=== PATIENT | female | born 1995 | race African-American/Black ===

== ENCOUNTER 2017-10-20 04:40 | Inpatient (IN) | payer OTHER ==
[2017-10-20] MEDS ORDERED: AMPICILLIN SODIUM 2 GM VIAL ONE (08:55)
[2017-10-20] MEDS: ELECTROLYTE-148 SOLN 1,000 ML IV SCH ×2 (09:00→17:11)
[2017-10-20] MEDS ORDERED: AMPICILLIN - 2 GM in SODIUM CHLORIDE 100 ML IVPB ONE (09:00)
[2017-10-20 09:32] LABS: BASO % 0.6 % (0-2.0); EOS % 5.7 % (0-4.5); HEMATOCRIT 26.5 % (32.4-45.2); HEMOGLOBIN 8.7 GM/dL (10.7-15.3); LYMPH % 26.5 % (8-40); MCH 24.3 pg (25.7-33.7); MCHC 32.8 g/dl (32.0-36.0); MEAN CELL VOLUME 74.2 fl (80-96); MEAN PLT VOLUME 7.1 fl (7.5-11.1); MONO % 11.8 % (3.8-10.2); NEUT % 55.4 % (42.8-82.8); PLATELET COUNT 370 K/MM3 (134-434); RBC 3.57 M/mm3 (3.60-5.2); RDW 16.5 % (11.6-15.6); WHITE BLOOD COUNT 8.3 K/mm3 (4.0-10.0)
[2017-10-20 10:04] LABS: ANION GAP 7 (8-16); BLOOD UREA NITROGEN 6 mg/dL (7-18); CHLORIDE 109 mmol/L (98-107); CO2 22 mmol/L (21-32); CREATININE 0.6 mg/dL (0.55-1.02); GLUCOSE,RANDOM 77 mg/dL (74-106); SODIUM 138 mmol/L (136-145)
[2017-10-20 10:08] LABS: INR 0.91 (0.82-1.09); PROTHROMBIN TIME (PATIENT) 10.3 SEC (9.7-13.0)
[2017-10-20 10:10] LABS: ACTIVATED PTT 26.9 SECONDS (26.9-34.4)
[2017-10-20 10:21] VITALS: BMI 36.2
[2017-10-20] MEDS ORDERED: ALBUTEROL SO4 8 GM HFA INHALER IH PRN (10:34)
[2017-10-20] MEDS ORDERED: BUTORPHANOL TARTRATE 1 MG/ML VIAL IVPUSH ONE (10:35)
[2017-10-20] MEDS ORDERED: PROMETHAZINE HCL 25 MG/1 ML VIAL IVPB ONE (10:35)
--- NOTE | 2017-10-20 10:57 | HP ---
Past Medical History - Primary Care Physician PCP:: Shelton Elena - Admission Chief Complaint: 40 weeks, high leak,early labor , inadequate care History of Present Illness: 22 yo f , 40+ weeks gestation with inadequate , limited care c/o of leaking fluid since 510 am today , clear, has irregular contraction on and off , no fever,cx 1 to 2 cm 70 vx , forbag felt, nitrazine positive , CBC, BMP 10/20/17 09:00 10/20/17 09:00 History Source: Patient Limitations to Obtaining History: No Limitations - Past Medical History ...: 1 ...Para: 0 ...Term: 0 ...: 0 ...Spon : 0 ...Induced : 0 ...Multiple Gestation: 0 ...LMP: 01/07/17 ... Weeks Gestation by Dates: 40.6 ...EDC by Dates: 10/14/17 ...EDC by Sono: 10/15/17 Heme/Onc: Yes: Anemia - Past Surgical History Hx Myomectomy: No Hx Transabdominal Cerclage: No - Smoking History Smoking history: Never smoked Have you smoked in the past 12 months: No - Alcohol/Substance Use Hx Alcohol Use: No - Social History History of Recent Travel: No Home Medications - Allergies Allergies/Adverse Reactions: Allergies Allergy/AdvReac Type Severity Reaction Status Date / Time shellfish derived Allergy Intermediate Hives Verified 10/15/17 14:24 No Known Drug Allergies Allergy Verified 10/15/17 14:24 - Home Medications Home Medications: Ambulatory Orders Albuterol Sulfate Inhaler - [Ventolin Hfa Inhaler -] 2 inh PO PRN PRN 09/09/17 Review of Systems - Review of Systems Constitutional: reports: No Symptoms Eyes: reports: No Symptoms HENT: reports: No Symptoms Neck: reports: No Symptoms Cardiovascular: reports: No Symptoms Respiratory: reports: No Symptoms Gastrointestinal: reports: No Symptoms Genitourinary: reports: No Symptoms Breasts: reports: No Symptoms Reported Musculoskeletal: reports: No Symptoms Integumentary: reports: No Symptoms Neurological: reports: No Symptoms Endocrine: reports: No Symptoms Hematology/Lymphatic: reports: No Symptoms Psychiatric: reports: No Symptoms Physical Exam - Maternity Vital Signs: Vital Signs Temperature 98.1 F 10/20/17 10:00 Pulse Rate 72 10/20/17 10:00 Respiratory Rate 18 10/20/17 10:00 Blood Pressure 124/66 10/20/17 10:00 O2 Sat by Pulse Oximetry (%) Constitutional: Yes: Well Nourished, No Distress, Calm Eyes: Yes: WNL, Conjunctiva Clear, EOM Intact HENT: Yes: WNL, Atraumatic, Normocephalic Neck: Yes: WNL, Supple, Trachea Midline Cardiovascular: Yes: WNL, Regular Rate and Rhythm Breast(s): Yes: WNL - Abdominal Exam/OB Fundal Height: 40 Number of Fetuses: Single Presentation: Vertex Contractions: Yes Regularity: Irregular Intensity: Mild/Mod Heart Rate Location: [facility] Category: I Accelerations: Uniform Decelerations: None - Vaginal Exam/OB Vaginal Bleediing: No Speculum Exam: Yes Dilatation (cm): 1 to 2 Effacement (%): 70 Amniotic Membrane Status: Bulging Nitrazine Test: Positive Presentation: Vertex/Position Station: -3 - Physical Exam Musculoskeletal: Yes: WNL Extremities: Yes: WNL Edema: LLE: Trace, RLE: Trace Deep Tendon Reflex Grade: Normal +2 ...Motor Strength: WNL Psychiatric: Yes: WNL - Labs Lab Results: CBC, BMP 10/20/17 09:00 10/20/17 09:00 Hemorrhage Risk Assessment - Risk Factors Medium Risk Factors: Yes: None High Risk Factors: Yes: None Risk Score: 1 Risk Level: Medium Risk Problem List - Problems (1) Post term over 40 weeks Code(s): O48.0 - POST-TERM (2) membrane rupture Code(s): [id number] - (3) History of inadequate care Code(s): O09.30 - SUPRVSN OF PREG W INSUFFICIENT ANTENAT CARE, UNSP TRIMESTER (4) Anemia Code(s): D64.9 - ANEMIA, UNSPECIFIED Qualifiers: Anemia type: iron deficiency Assessment/Plan admit, GBS positve , iv amp prophylaxis, expectant management . revaluation later for possible pitocin,
[2017-10-20] MEDS: AMPICILLIN - 1 GM in SODIUM CHLORIDE 100 ML IVPB SCH ×3 (13:25→21:00)
[2017-10-20] MEDS ORDERED: AMPICILLIN SODIUM 1 GM VIAL ONE ×2 (17:03→20:29)
[2017-10-20 20:07] LABS: URIC ACID 6.2 mg/dL (2.6-7.2)
[2017-10-20] MEDS ORDERED: LABETALOL HCL 200 MG TABLET (FP) ONE (20:21)
[2017-10-20] MEDS ORDERED: LABETALOL HCL 200 MG TABLET (FP) PO ONE (20:45)
[2017-10-20] MEDS ORDERED: OXYTOCIN 30 UNITS in 0.9% NS 30 UNIT/500 ML INFUS.BAG IVPB SCH (20:45)
[2017-10-20 21:42] LABS: URINE APPEARANCE CLEAR; URINE BILIRUBIN NEGATIVE (<2.0 mg/dL); URINE COLOR STRAW; URINE GLUCOSE (UA) NEGATIVE (NEGATIVE); URINE KETONE NEGATIVE (NEGATIVE); URINE LEUK ESTERASE NEGATIVE (NEGATIVE); URINE NITRITE NEGATIVE (NEGATIVE); URINE PROTEIN NEGATIVE (NEGATIVE); URINE UROBILINOGEN NEGATIVE mg/dL (0.2-1.0)
[2017-10-20 21:44] LABS: EPI CELLS RARE /HPF (FEW)
[2017-10-21] MEDS ORDERED: AMPICILLIN SODIUM 1 GM VIAL ONE ×4 (00:48→12:26)
[2017-10-21] MEDS: AMPICILLIN - 1 GM in SODIUM CHLORIDE 100 ML IVPB SCH ×4 (00:54→13:00)
[2017-10-21] MEDS: ELECTROLYTE-148 SOLN 1,000 ML IV SCH ×2 (01:45→06:00)
[2017-10-21] MEDS ORDERED: FENTANYL/BUPIVACAINE/NS/PF - PCEA - 50 ML DISP.SYRIN EP ONE ×3 (02:01→10:00)
[2017-10-21] MEDS ORDERED: NALOXONE HCL 0.4 MG/ML VIAL IVPUSH PRN (02:43)
[2017-10-21] MEDS ORDERED: FENTANYL/BUPIVACAINE/NS/PF - PCEA - 50 ML DISP.SYRIN EP SCH (02:45)
[2017-10-21] MEDS ORDERED: LABETALOL HCL 200 MG TABLET (FP) ONE ×2 (02:57→10:51)
[2017-10-21] MEDS: LABETALOL HCL 200 MG TABLET (FP) PO PRN ×2 (03:00→10:50)
--- NOTE | 2017-10-21 07:58 | PN ---
Progress Note (short form) - Note Progress Note: cx 4 cm 80, vx -3 mi, bulging, FH cat 1, contraction q 2 min, arom clear Problem List - Problems (1) Post term over 40 weeks Code(s): O48.0 - POST-TERM (2) membrane rupture Code(s): [id number] - (3) History of inadequate care Code(s): O09.30 - SUPRVSN OF PREG W INSUFFICIENT ANTENAT CARE, UNSP TRIMESTER (4) Anemia Code(s): D64.9 - ANEMIA, UNSPECIFIED Qualifiers: Anemia type: iron deficiency
[2017-10-21] MEDS ORDERED: BUPIVACAINE HCL/PF 0.25% (2.5MG/ML) 10 ML VIAL ONE ×2 (10:08→11:26)
[2017-10-21] MEDS ORDERED: ELECTROLYTE-148 SOLN 1,000 ML IV SCH ×2 (10:30→15:45)
[2017-10-21] MEDS ORDERED: OXYTOCIN 20 UNITS in 0.9% NS 20 UNIT/1,000 ML INFUS.BAG IV ONE ×2 (14:03→18:41)
[2017-10-21] MEDS ORDERED: LIDOCAINE HCL 1% PRESERVATIVE FREE - 30ML VIAL ONE (14:03)
--- NOTE | 2017-10-21 15:31 | PN ---
Progress Note (short form) - Note Progress Note: cx 9 cm , head OP , no descent with pushing, LGA baby, advised c/s rba discussed Problem List - Problems (1) Post term over 40 weeks Code(s): O48.0 - POST-TERM (2) membrane rupture Code(s): [id number] - (3) History of inadequate care Code(s): O09.30 - SUPRVSN OF PREG W INSUFFICIENT ANTENAT CARE, UNSP TRIMESTER (4) Anemia Code(s): D64.9 - ANEMIA, UNSPECIFIED Qualifiers: Anemia type: iron deficiency
[2017-10-21] MEDS ORDERED: LIDO 2%/EPI 1:200000 PRESRVFRE (20 ML SDVIAL) ONE (15:41)
[2017-10-21] MEDS ORDERED: CITRIC ACID/SODIUM CITRATE 30 ML UNIT-DOSE CUP PO ONE (15:42)
[2017-10-21] MEDS ORDERED: ceFAZolin SODIUM 1 GM VIAL ONE ×2 (16:00→21:19)
[2017-10-21] MEDS ORDERED: LABETALOL HCL 5 MG/1 ML (100MG/20 ML VIAL) ONE (16:00)
--- NOTE | 2017-10-21 16:26 | PN ---
Progress Note (short form) - Note Progress Note: This is FT female delivered by C/S to 23yrs old mother with FTP- ? large baby Mom PNL- GBS- Pos 1 dose of Amp < 4hrs PT del cried swoon after suctioned/ dried cord 3V 9/9 Infant clinically stable- looks clarge in size. 's PE nl for age Plan: RNBC Watch for resp distress Encourage Bf/ Bonding Start early feeds
[2017-10-21] MEDS ORDERED: morphine SULFATE/Preservative Free 0.5 MG/ML (1cc Syringe) ONE ×8 (16:28)
[2017-10-21 16:43] LABS: ARTERIAL BLOOD GAS PCO2 59.4 mmHg (35-45); ARTERIAL BLOOD GAS pH 7.25 (7.35-7.45)
[2017-10-21 16:44] LABS: VENOUS PC02 42.2 mmHg (38-52); VENOUS PH 7.33 (7.32-7.42); VENOUS PO2 35.8 mmHg (28-48)
[2017-10-21 16:46] LABS: ARTERIAL BLOOD GAS PO2 15.5 mmHg (80-100)
[2017-10-21 16:47] LABS: ARTERIAL BLD GAS O2 SATURATION 18.4 % (90-98.9)
[2017-10-21] MEDS ORDERED: diphenhydrAMINE HCL 25 MG CAPSULE (FP) PO PRN (16:48)
[2017-10-21] MEDS ORDERED: BENZOCAINE 28 GM HEMORRHOIDAL OINTMENT PR PRN (16:48)
[2017-10-21] MEDS ORDERED: METHYLERGONOVINE MALEATE 0.2 MG/1 ML AMP IM PRN (16:48)
[2017-10-21] MEDS ORDERED: WITCH HAZEL 50% (TUCKS) 40 PAD/JAR PAD TP PRN (16:48)
[2017-10-21] MEDS ORDERED: IBUPROFEN 600 MG TABLET (FP) PO PRN ×2 (16:48→17:09)
[2017-10-21] MEDS ORDERED: BENZOCAINE 20% 57 GM BOTTLE TP PRN (16:48)
[2017-10-21] MEDS ORDERED: IBUPROFEN 800 MG/8 ML IJ IVPB PRN (16:48)
[2017-10-21] MEDS ORDERED: oxyCODONE HCL 5 MG TABLET PO PRN (16:48)
[2017-10-21] MEDS ORDERED: DEXTROSE 5%-LACTATED RINGERS 1,000 ML IV SCH (17:00)
[2017-10-21] MEDS ORDERED: OXYTOCIN 20 UNITS in 0.9% NS 20 UNIT/1,000 ML INFUS.BAG IV SCH (17:00)
[2017-10-21] MEDS ORDERED: ONDANSETRON 4 MG/2 ML VIAL IVPUSH PRN (17:09)
[2017-10-21] MEDS ORDERED: CEFAZOLIN 1 GM in DEXTROSE 5%-WATER - 50 ML IVPB SCH (18:00)
[2017-10-21 18:11] LABS: RETICULOCYTES 2.48 % (0.5-1.5)
[2017-10-21 18:38] LABS: URIC ACID 6.9 mg/dL (2.6-7.2)
[2017-10-21 18:40] LABS: URINE APPEARANCE CLEAR; URINE BILIRUBIN NEGATIVE (<2.0 mg/dL); URINE COLOR YELLOW; URINE GLUCOSE (UA) NEGATIVE (NEGATIVE); URINE KETONE TRACE (NEGATIVE); URINE LEUK ESTERASE NEGATIVE (NEGATIVE); URINE NITRITE NEGATIVE (NEGATIVE); URINE UROBILINOGEN NEGATIVE mg/dL (0.2-1.0)
[2017-10-21] MEDS ORDERED: IBUPROFEN 800 MG/8 ML IJ IVPB ONE (18:41)
[2017-10-21 18:48] LABS: URINE PROTEIN 1+ (NEGATIVE)
[2017-10-21 18:54] LABS: EPI CELLS RARE /HPF (FEW); URINE HYALINE CAST 4 /lpf; URINE MUCUS RARE
[2017-10-21] MEDS ORDERED: ACETAMINOPHEN 325 MG TABLET (FP) PO ONE (19:30)
[2017-10-21] MEDS ORDERED: oxyCODONE HCL 5 MG TABLET PO ONE (19:30)
[2017-10-21] MEDS ORDERED: ACETAMINOPHEN 325 MG TABLET (FP) ONE (19:46)
[2017-10-21] MEDS ORDERED: oxyCODONE HCL 5 MG TABLET ONE (19:47)
[2017-10-21] MEDS ORDERED: DEXTROSE 5%-WATER - 50 ML IVPB ONE (21:19)
[2017-10-21 21:43] LABS: BASO % 0.5 % (0-2.0); EOS % 1.2 % (0-4.5); HEMATOCRIT 20.8 % (32.4-45.2); MCH 23.6 pg (25.7-33.7); MEAN CELL VOLUME 73.7 fl (80-96); MEAN PLT VOLUME 6.9 fl (7.5-11.1); MONO % 10.6 % (3.8-10.2); NEUT % 79.7 % (42.8-82.8); PLATELET COUNT 311 K/MM3 (134-434); RBC 2.82 M/mm3 (3.60-5.2); RDW 16.7 % (11.6-15.6); WHITE BLOOD COUNT 11.5 K/mm3 (4.0-10.0)
[2017-10-21 21:47] LABS: HEMOGLOBIN 6.7 GM/dL (10.7-15.3)
[2017-10-21] MEDS: CEFAZOLIN 1 GM in DEXTROSE 5%-WATER - 50 ML IVPB SCH (22:21)
[2017-10-21] MEDS: NIFEdipine E.R. 30 MG TABLET (FP) PO SCH (22:21)
[2017-10-21] MEDS ORDERED: CARBOPROST TROMETHAMINE 250 MCG/ML AMPUL IM ONE (23:30)
[2017-10-22] MEDS: OXYTOCIN 20 UNITS in 0.9% NS 20 UNIT/1,000 ML INFUS.BAG IV SCH (03:00)
[2017-10-22] MEDS ORDERED: CEFAZOLIN 1 GM in DEXTROSE 5%-WATER - 50 ML IVPB SCH (03:36)
[2017-10-22] MEDS ORDERED: ceFAZolin SODIUM 1 GM VIAL ONE ×2 (05:52→12:20)
[2017-10-22] MEDS ORDERED: DEXTROSE 5%-WATER - 50 ML IVPB ONE ×2 (05:52→12:20)
[2017-10-22] MEDS: CEFAZOLIN 1 GM in DEXTROSE 5%-WATER - 50 ML IVPB SCH ×3 (06:06→12:30)
[2017-10-22] MEDS: SIMETHICONE 80 MG TAB.CHEW (FP) PO PRN ×3 (06:27→21:28)
[2017-10-22] MEDS: ACETAMINOPHEN 325 MG TABLET (FP) PO PRN ×3 (06:28→21:29)
[2017-10-22 08:36] LABS: BASO % 0.3 % (0-2.0); EOS % 0.8 % (0-4.5); HEMATOCRIT 18.9 % (32.4-45.2); LYMPH % 11.4 % (8-40); MCH 23.9 pg (25.7-33.7); MCHC 32.5 g/dl (32.0-36.0); MEAN CELL VOLUME 73.6 fl (80-96); MEAN PLT VOLUME 6.9 fl (7.5-11.1); MONO % 8.1 % (3.8-10.2); NEUT % 79.4 % (42.8-82.8); PLATELET COUNT 266 K/MM3 (134-434); RBC 2.56 M/mm3 (3.60-5.2); RDW 16.6 % (11.6-15.6); WHITE BLOOD COUNT 13.3 K/mm3 (4.0-10.0)
--- NOTE | 2017-10-22 08:49 | OP ---
DATE OF OPERATION: 10/21/2017 PREOPERATIVE DIAGNOSES: post dates, labor, failure to dilate and descend, large for gestational age. POSTOPERATIVE DIAGNOSES: post dates, labor, failure to dilate and descend, large for gestational age. PROCEDURE: Primary low-segment transverse section. SURGEON: Brandon Elena MD TEST RIDER: LOC [place] ANESTHESIA: Epidural. ANESTHESIOLOGIST: Florence Gibson MD ESTIMATED BLOOD LOSS: 500 mL OPERATING COURSE: Patient was taken to the operating room. Under adequate epidural anesthesia, abdomen and perineum were prepped and draped. Pfannenstiel abdominal skin incision was made. The abdominal wall was cut layer by layer until peritoneum was exposed and incised. Upon entering the abdominal cavity, lower uterine segment was identified and uterovesical fold of peritoneum established. Bladder was pushed down. Then, with the lower blade of the Linda retractor in the pelvis, a low transverse uterine incision was made. The incision extended laterally with bandage scissors. Amniotic sac was entered; clear fluid. Head delivered from right occiput posterior position. Nasopharynx was suctioned, and live baby was delivered without any difficulty, Apgars 9 and 9. Placenta was delivered manually. Uterine cavity was cleaned of all remaining tissue. Uterine incision was closed in 2 layers, first layer with 0 Biosyn continuous suture, the second layer with 0 Biosyn imbricating the first layer. Bladder flap was closed with 0 Biosyn continuous suture. Both tubes and ovaries were checked, were normal. No active bleeding was seen. All the lap pads, sponge, and instrument counts were correct. Then, peritoneum was closed with 0 Biosyn continuous suture. Muscles were brought together with interrupted sutures of 0 Biosyn. Fascia was closed with 0 Biosyn continuous suture, subcutaneous fat with interrupted suture of 0 Biosyn, and the skin was closed with adilson. Patient tolerated the procedure well, left the OR in good condition. BRANDON ELENA M.D. [id number]
[2017-10-22 08:58] LABS: HEMOGLOBIN 6.1 GM/dL (10.7-15.3)
[2017-10-22] MEDS ORDERED: ACETAMINOPHEN 500 MG TABLET (FP) PO PRN (09:28)
--- NOTE | 2017-10-22 09:35 | PN ---
Progress Note (short form) - Note Progress Note: pod 1 s/p c/s , severe anemia, HTN no vaginal bleeding, no pain , no dizziness , no headache or blurred vision Last Vital Signs Temp Pulse Resp BP Pulse Ox 98.4 F 89 20 135/78 100 10/22/17 08:08 10/22/17 08:08 10/22/17 08:08 10/22/17 08:08 10/21/17 17:40 Last Vital Signs Temp Pulse Resp BP Pulse Ox 98.4 F 89 20 135/78 100 10/22/17 08:08 10/22/17 08:08 10/22/17 08:08 10/22/17 08:08 10/21/17 17:40 CBC, BMP 10/22/17 07:45 10/20/17 09:00 abdomem soft, no distension, no cva incision dry, clean no vaginal bleeding no calf tenderness impression anemia . advised blood transfusion , risks discussed , declined transfusion, risks of severe anemia discussed , states she is asymptomatic wants to be observe, advised iron, vit Problem List - Problems (1) Post term over 40 weeks Code(s): O48.0 - POST-TERM (2) membrane rupture Code(s): [id number] - (3) History of inadequate care Code(s): O09.30 - SUPRVSN OF PREG W INSUFFICIENT ANTENAT CARE, UNSP TRIMESTER (4) Anemia Code(s): D64.9 - ANEMIA, UNSPECIFIED Qualifiers: Anemia type: iron deficiency
[2017-10-22] MEDS: PRENATAL VITAMINS W/ FOLIC ACID TABLET (FP) PO SCH (10:08)
[2017-10-22] MEDS: ENOXAPARIN NA (PORCINE) 40 MG/0.4 ML DISP.SYRIN SQ SCH (10:08)
[2017-10-22] MEDS: NIFEdipine E.R. 30 MG TABLET (FP) PO SCH (10:12)
[2017-10-22] MEDS: FERROUS SO4/VIT C/FA 1 EACH TABLET.ER PO SCH ×2 (11:35→22:34)
[2017-10-22] MEDS: oxyCODONE HCL 5 MG TABLET PO PRN ×2 (13:18→21:29)
[2017-10-22] MEDS: LABETALOL HCL 200 MG TABLET (FP) PO SCH ×2 (13:54→22:33)
--- NOTE | 2017-10-22 14:52 | CONSULT ---
Consult Consult Specialty:: Nephrolog ( Mac/ Zeeshan) Referred by:: Dr. Washington Reason for Consultation:: elevation of BP - History of Present Illness Chief Complaint: 2 yo female 40+ weeks gestation with limited care seen in the maternity floor for elevated BP after C Section. The patient has no h/o HTN. - History Source History Provided By: Patient Limitations to Obtaining History: No Limitations - Past Medical History Cardio/Vascular: No: CAD, HTN Gastrointestinal: No: Cancer, Constipation, Irritable Bowel Disease, Pancreatitis Renal/: No: Renal Inusuff Psych: No: Addictions, Anxiety, Bipolar, Depression, Panic, Psychosis, Schizophrenia, Other Rheumatology: No: Fibromyalgia, Gout, Lupus, Rheumatoid Arthritis, Sarcoidosis, Vasculitis, Other Endocrine: No: [place]'s Disease, Claudia's Disease, Diabetes Insipidus, Diabetes Mellitus, Hyperparathyroidism, Hyperthyroidism, Hypothyroidism, Osteopenia, SIADH, Other - Alcohol/Substance Use Hx Alcohol Use: No - Smoking History Smoking history: Never smoked Have you smoked in the past 12 months: No - Social History History of Recent Travel: No Home Medications - Allergies Allergies/Adverse Reactions: Allergies Allergy/AdvReac Type Severity Reaction Status Date / Time shellfish derived Allergy Intermediate Hives Verified 10/20/17 23:57 No Known Drug Allergies Allergy Verified 10/20/17 23:57 - Home Medications Home Medications: Ambulatory Orders Albuterol Sulfate Inhaler - [Ventolin Hfa Inhaler -] 2 inh PO PRN PRN 09/09/17 Review of Systems - Review of Systems Constitutional: reports: No Symptoms Eyes: denies: Blind Spots, Blurred Vision, Double Vision, Eye Pain, Photophobia , Recent Change in Vision Cardiovascular: denies: Chest Pain, Palpitations Respiratory: denies: Cough Gastrointestinal: denies: Abdominal Pain Integumentary: reports: No Symptoms Neurological: reports: No Symptoms. denies: Headache Physical Exam Vital Signs: Vital Signs Temperature 97.9 F 10/22/17 13:40 Pulse Rate 95 H 10/22/17 13:40 Respiratory Rate 20 10/22/17 14:00 Blood Pressure 132/76 10/22/17 13:40 O2 Sat by Pulse Oximetry (%) 100 10/21/17 17:40 Constitutional: Yes: Well Nourished, No Distress Eyes: Yes: Conjunctiva Clear HENT: Yes: Normocephalic Neck: Yes: Trachea Midline Cardiovascular: Yes: Regular Rate and Rhythm, S1, S2 Respiratory: Yes: CTA Bilaterally, Diminished Gastrointestinal: Yes: Normal Bowel Sounds Renal/: No: Bladder Distention, CVA Tenderness - Left, CVA Tenderness - Right Musculoskeletal: Yes: Back Pain Edema: LLE: Trace, RLE: Trace Neurological: Yes: Alert, Oriented Labs: CBC, BMP 10/22/17 07:45 10/20/17 09:00 Problem List - Problems (1) hypertension Code(s): O16.5 - UNSPECIFIED MATERNAL HYPERTENSION, COMP THE PUERPERIUM (2) Anemia, Code(s): O90.81 - ANEMIA OF THE PUERPERIUM (3) Anemia Code(s): D64.9 - ANEMIA, UNSPECIFIED Qualifiers: Anemia type: iron deficiency Assessment/Plan 22 y/o female with Hypertension after C Section. The mother and the baby doing well. The patient is planning on nursing the baby. Post PET. No evidence of HELLP syndrome. Will start the Patient on Labetalol. Monitor the BP closely. BP seems to be well controlled on the current regimen. Profound and severe anemia. ? PRBC transfusion. To be managed per Ob protocol. Thank you. Will follow with you.
[2017-10-22] MEDS ORDERED: BISACODYL 10 MG SUPP.RECT RC PRN (16:48)
[2017-10-23] MEDS: SIMETHICONE 80 MG TAB.CHEW (FP) PO PRN ×4 (03:44→22:00)
[2017-10-23] MEDS: ACETAMINOPHEN 325 MG TABLET (FP) PO PRN ×4 (03:45→22:00)
[2017-10-23] MEDS: oxyCODONE HCL 5 MG TABLET PO PRN ×4 (03:45→22:00)
--- NOTE | 2017-10-23 06:47 | PN ---
Post Progress Note - Subjective Subjective: pt c/o pain scale 9/10 no c/o dizziness , s/p 2 units pack cell transfusion yesterday no c/o headache voiding without difficulty Post Day: 2 Type of Delivery: Primary C/S Vital Signs: Vital Signs Temperature 98.5 F 10/22/17 22:00 Pulse Rate 86 10/23/17 06:00 Respiratory Rate 20 10/23/17 06:00 Blood Pressure 127/85 10/23/17 06:00 O2 Sat by Pulse Oximetry (%) 100 10/21/17 17:40 Selected Entries 10/22/17 10/22/17 10/23/17 17:15 22:00 02:00 Blood Pressure 136/76 139/89 123/70 Breast Exam: Yes: Soft, Other (presently bottle feeding ). No: Engorged Uterus: Yes: Fundus Firm, Fundus below umbilicus, Non-tender Incision: Yes: Dressing dry and intact (to be changed today.). No: Redness, Oozing Abdomen/GI: Yes: Abdomen soft (bs active ), Abdominal Distention (obese abdomen ), Passing flatus (bm not done ), Tolerating PO (diet ). No: Tender Lochia, amount: Moderate Extremities: Yes: Calves non-tender Perineum: Yes: Intact Activity: Ambulating - Labs Labs: CBC WBC 13.3 K/mm3 (4.0-10.0) H 10/22/17 07:45 RBC 2.56 M/mm3 (3.60-5.2) L 10/22/17 07:45 Hgb 6.1 GM/dL (10.7-15.3) L* 10/22/17 07:45 Hct 18.9 % (32.4-45.2) L 10/22/17 07:45 MCV 73.6 fl (80-96) L 10/22/17 07:45 MCH 23.9 pg (25.7-33.7) L 10/22/17 07:45 MCHC 32.5 g/dl (32.0-36.0) 10/22/17 07:45 RDW 16.6 % (11.6-15.6) H 10/22/17 07:45 Plt Count 266 K/MM3 (134-434) 10/22/17 07:45 MPV 6.9 fl (7.5-11.1) L 10/22/17 07:45 Absolute Neuts (auto) 10.5 # 10/22/17 07:45 Neutrophils % 79.4 % (42.8-82.8) 10/22/17 07:45 Lymphocytes % 11.4 % (8-40) D 10/22/17 07:45 Monocytes % 8.1 % (3.8-10.2) 10/22/17 07:45 Eosinophils % 0.8 % (0-4.5) 10/22/17 07:45 Basophils % 0.3 % (0-2.0) 10/22/17 07:45 Nucleated RBC % 0 % (0-0) 10/22/17 07:45 Retic Count 2.48 % (0.5-1.5) H 10/21/17 17:00 Haptoglobin 114 mg/dL (34-200) 10/20/17 09:00 Other Findings, Remarks: RS cta urine output 6250 ml Problem List - Problems (1) Anemia, Code(s): O90.81 - ANEMIA OF THE PUERPERIUM (2) hypertension Code(s): O16.5 - UNSPECIFIED MATERNAL HYPERTENSION, COMP THE PUERPERIUM (3) delivery delivered Code(s): O82 - ENCOUNTER FOR DELIVERY WITHOUT INDICATION (4) Status post section routine follow-up Code(s): Z39.2 - ENCOUNTER FOR ROUTINE FOLLOW-UP; Z98.891 - HISTORY OF UTERINE SCAR FROM PREVIOUS SURGERY Assessment/Plan s/o primary c/s, severe anemia , s/p 2 pack cell transfusion , pp htn on PO Labetalol 200 mg has been d/keyur ., po procardia given on 11/20/17. not given on 11/21/17 Plan : repeat cbc today [facility] suppository encourage ambulation & deep breathing watch for BP
[2017-10-23] MEDS: LABETALOL HCL 200 MG TABLET (FP) PO SCH ×3 (07:26→22:55)
[2017-10-23 09:08] LABS: BASO % 0.5 % (0-2.0); EOS % 2.6 % (0-4.5); HEMATOCRIT 22.1 % (32.4-45.2); HEMOGLOBIN 7.2 GM/dL (10.7-15.3); LYMPH % 16.3 % (8-40); MCH 24.9 pg (25.7-33.7); MCHC 32.7 g/dl (32.0-36.0); MEAN CELL VOLUME 76.1 fl (80-96); MEAN PLT VOLUME 7.2 fl (7.5-11.1); MONO % 7.6 % (3.8-10.2); PLATELET COUNT 319 K/MM3 (134-434); RBC 2.91 M/mm3 (3.60-5.2); RDW 17.8 % (11.6-15.6); WHITE BLOOD COUNT 11.3 K/mm3 (4.0-10.0)
[2017-10-23] MEDS: PRENATAL VITAMINS W/ FOLIC ACID TABLET (FP) PO SCH (09:18)
[2017-10-23] MEDS: FERROUS SO4/VIT C/FA 1 EACH TABLET.ER PO SCH ×2 (09:18→22:55)
[2017-10-23] MEDS: ENOXAPARIN NA (PORCINE) 40 MG/0.4 ML DISP.SYRIN SQ SCH (09:18)
[2017-10-23] MEDS: OXYTOCIN 20 UNITS in 0.9% NS 20 UNIT/1,000 ML INFUS.BAG IV SCH (10:47)
--- NOTE | 2017-10-23 12:33 | PN ---
Progress Note, Physician Chief Complaint: Post- Hypertension - Current Medication List Current Medications: Active Medications Acetaminophen (Tylenol -) 650 mg PO Q4H PRN PRN Reason: PAIN LEVEL 1-5 Last Admin: 10/23/17 09:19 Dose: 650 mg Acetaminophen (Tylenol -) 500 mg PO Q6H PRN PRN Reason: PAIN LEVEL 4 - 6 Albuterol Sulfate (Ventolin Hfa Inhaler -) 2 puff IH Q4H PRN PRN Reason: ASTHMA Benzocaine (Americaine 20% [place] -) 1 spray TP PRN PRN PRN Reason: Pain - Topical Benzocaine (Americaine Ointment -) 1 applic NV PRN PRN PRN Reason: Pain - Topical Bisacodyl (Dulcolax Suppository -) 10 mg RC PRN PRN PRN Reason: CONSTIPATION Diphenhydramine HCl (Benadryl -) 25 mg PO Q8H PRN PRN Reason: FOR ITCHING Enoxaparin Sodium (Lovenox -) 40 mg SQ DAILY [facility] Last Admin: 10/23/17 09:18 Dose: 40 mg Folic Acid/Iron (Folitab 500 Caplet -) 1 each PO BID [facility] Last Admin: 10/23/17 09:18 Dose: 1 each Oxytocin/Sodium Chloride (Normal Saline+30 Units Oxytocin) 30 unit in 500 mls @ 1 mls/hr IVPB ASDIR [facility] Last Infusion: 10/21/17 10:00 Dose: 7 mls/hr Oxytocin/Sodium Chloride (Normal Saline+20 Units Oxytocin -) 20 unit in 1,000 mls @ 100 mls/hr IV ASDIR [facility] Last Admin: 10/23/17 10:47 Dose: Not Given Ibuprofen (Caldolor Injection -) 800 mg IVPB Q6H PRN PRN Reason: PAIN 6-10 if PO not effective. Last Admin: 10/21/17 18:45 Dose: 800 mg Ibuprofen (Motrin -) 600 mg PO Q4H PRN PRN Reason: PAIN LEVEL 1-5 Labetalol HCl (Normodyne -) 200 mg PO TID [facility] Last Admin: 10/23/17 07:26 Dose: Not Given Naloxone HCl (Narcan -) 0.4 mg IVPUSH PRN PRN PRN Reason: Sedation Ondansetron HCl (Zofran Injection) 4 mg IVPUSH Q4H PRN PRN Reason: NAUSEA Oxycodone HCl (Roxicodone -) 5 mg PO Q4H PRN PRN Reason: PAIN LEVEL 4 - 6 Oxycodone HCl (Roxicodone -) 10 mg PO Q4H PRN PRN Reason: PAIN LEVEL 7 - 10 Last Admin: 10/23/17 09:18 Dose: 10 mg Multivit/Folic Acid/Iron ( Vitamins (Sjr) -) 1 tab PO DAILY [facility] Last Admin: 10/23/17 09:18 Dose: 1 tab Senna/Docusate Sodium (Pericolace -) 2 tablet PO HS PRN PRN Reason: CONSTIPATION Simethicone (Mylicon -) 80 mg PO Q4H PRN PRN Reason: GAS Last Admin: 10/23/17 09:18 Dose: 80 mg Witch Alicia/Glycerin (Tucks Pads -) 1 pad TP PRN PRN PRN Reason: Pain - Topical - Objective Vital Signs: Vital Signs Temperature 98.4 F 10/23/17 10:00 Pulse Rate 83 10/23/17 10:00 Respiratory Rate 20 10/23/17 10:00 Blood Pressure 136/77 10/23/17 10:00 O2 Sat by Pulse Oximetry (%) 100 10/21/17 17:40 Constitutional: Yes: No Distress, Calm Eyes: Yes: Conjunctiva Clear HENT: Yes: Normocephalic Neck: Yes: Supple, Trachea Midline Cardiovascular: Yes: Regular Rate and Rhythm, S1, S2 Respiratory: Yes: CTA Bilaterally, Diminished Gastrointestinal: Yes: Normal Bowel Sounds, Soft Extremities: No: Calf Tenderness Edema: LLE: Trace, RLE: Trace Labs: CBC, BMP 10/23/17 08:30 10/20/17 09:00 INR, PTT INR 0.91 (0.82-1.09) 10/20/17 09:00 Problem List - Problems (1) hypertension Code(s): O16.5 - UNSPECIFIED MATERNAL HYPERTENSION, COMP THE PUERPERIUM (2) Anemia, Code(s): O90.81 - ANEMIA OF THE PUERPERIUM (3) Anemia Code(s): D64.9 - ANEMIA, UNSPECIFIED Qualifiers: Anemia type: iron deficiency Assessment/Plan 22 y/o female with Hypertension after C Section. The mother and the baby doing well. The patient is planning on nursing the baby. Post PET. No evidence of HELLP syndrome. BP well controlled. Will modify Labetalol regimen. Monitor the BP closely. BP seems to be well controlled on the current regimen. Profound and severe anemia. ? PRBC transfusion. To be managed per Ob protocol. Thank you. Will follow with you.
--- NOTE | 2017-10-23 13:12 | PN ---
Mental Health Exam - Mental Status Exam Alert and Oriented to: Time, Place, Person Cognitive Function: Grossly Intact Patient Appearance: Unkempt Mood: Hopeful, Happy Affect: Appropriate Patient Behavior: Cooperative ("BUT I DONT WANT ANTY MOR INJECTIONS". ) Speech Pattern: Clear Voice Loudness: Normal Thought Process: Intact Thought Disorder: Not Present Hallucinations: None Suicidal Ideation: None Homicidal Ideation: None Insight/Judgement: Fair Sleep: Fair Appetite: Good Muscle strength/Tone: Normal Gait/Station: Deferred
--- NOTE | 2017-10-23 13:18 | PN ---
Progress Note (short form) - Note Progress Note: tHIS IS A 22 YO POST FEMALE SEEN TODAY AFTER REFUSAL OF INITIAL RO GHAM AND BLOOD TRANSFUSION. cLIENT HAS 2ND DAY POST PARTUNM FROMN C SECTION, FIRST CHILD. cLIENT DENIES DEPRESSION/ PSYCHOSIS. DENIES SUBSTANCE USE. Problem List - Problems (1) Knowledge deficit Assessment/Plan: CLIENT IS ALERT ORIENTATED, nO NEED FOR PSYCH MEDS. REQUIRES SUPPORT IN COMMUNITY. DENIES BEING AT RISK TO HER BABY. Code(s): [id number] -
--- NOTE | 2017-10-23 16:14 | PATH ---
Surgical Pathology Report Patient Name: JAYESH BALLARD Med. Rec. #: [id number] /Age/Gender: 1995 (Age: 22) / F Account: [id number] Location: [facility] OBS/MIXER AND SCALER Taken: 10/21/2017 Received: 10/22/2017 Reported: 10/23/2017 Physicians: Shelton Elena M.D. Specimen(s) Received PLACENTA Clinical History , 40.6 weeks, asthma, sickle cell trait, FOB(+), eczema, anemia Final Diagnosis PLACENTA, SECTION: 713 g THIRD TRIMESTER PLACENTA WITH TRIVASCULAR UMBILICAL CORD AND FOCAL ACUTE MILD CHORIOAMNIONITIS. Electronically Signed Jody Oro M.D. Gross Description The specimen is received fresh labeled placenta and is a 713 gram, 24 x15 x 2.1cm. placenta with attached membranes and umbilical cord. The attached membranes are glistening, translucent, and insert marginally. The umbilical cord measures 15 cm. in length and averages 1.5 cm. in diameter. The cord inserts centrally, 4 centimeter to the nearest margin. No true knots or strictures are identified. Cut surface of the umbilical cord reveals 3 vessels. Sectioning reveals red-brown, spongy parenchyma. No lesions are identified. [employer] sections are submitted in three cassettes as follows: 1- membrane rolls and umbilical cord; 2-3- full thickness sections of placenta KWS/10/22/2017 sulki/10/22/2017
[2017-10-23] MEDS ORDERED: SENNOSIDES/DOCUSATE COMBO (SENNA PLUS) TABLET (UD) PO PRN (22:00)
[2017-10-24] MEDS: LABETALOL HCL 200 MG TABLET (FP) PO SCH ×3 (08:45→21:16)
[2017-10-24] MEDS: oxyCODONE HCL 5 MG TABLET PO PRN ×2 (08:45→13:59)
[2017-10-24] MEDS: ACETAMINOPHEN 325 MG TABLET (FP) PO PRN ×2 (08:45→13:58)
[2017-10-24 09:05] LABS: BASO % 0.7 % (0-2.0); MCH 25.4 pg (25.7-33.7); MCHC 32.7 g/dl (32.0-36.0); MEAN CELL VOLUME 77.5 fl (80-96); MEAN PLT VOLUME 7.4 fl (7.5-11.1); MONO % 8.3 % (3.8-10.2); PLATELET COUNT 294 K/MM3 (134-434); RBC 2.71 M/mm3 (3.60-5.2); RDW 17.8 % (11.6-15.6); WHITE BLOOD COUNT 8.2 K/mm3 (4.0-10.0)
[2017-10-24 09:20] LABS: HEMOGLOBIN 6.9 GM/dL (10.7-15.3)
[2017-10-24] MEDS: OXYTOCIN 20 UNITS in 0.9% NS 20 UNIT/1,000 ML INFUS.BAG IV SCH (09:25)
--- NOTE | 2017-10-24 09:46 | PN ---
Post Progress Note - Subjective Subjective: 22 yo Para 1 status post , seen and evaluated. She refuses blood transfusion and Rhogam therapy. She admits to doing well. Post Day: 3 Type of Delivery: Primary C/S Vital Signs: Vital Signs Temperature 97.5 F L 10/23/17 22:41 Pulse Rate 90 10/23/17 22:41 Respiratory Rate 20 10/23/17 22:41 Blood Pressure 147/94 10/23/17 22:41 O2 Sat by Pulse Oximetry (%) 100 10/21/17 17:40 Breast Exam: Yes: Soft Incision: Yes: [place] intact Abdomen/GI: Yes: Abdomen soft Lochia: Yes: Rubra Lochia, amount: Small Extremities: Yes: Calves non-tender Perineum: Yes: Intact Activity: Ambulating - Labs Labs: CBC WBC 8.2 K/mm3 (4.0-10.0) 10/24/17 06:00 RBC 2.71 M/mm3 (3.60-5.2) L 10/24/17 06:00 Hgb 6.9 GM/dL (10.7-15.3) L* 10/24/17 06:00 Hct 21.0 % (32.4-45.2) L 10/24/17 06:00 MCV 77.5 fl (80-96) L 10/24/17 06:00 MCH 25.4 pg (25.7-33.7) L 10/24/17 06:00 MCHC 32.7 g/dl (32.0-36.0) 10/24/17 06:00 RDW 17.8 % (11.6-15.6) H 10/24/17 06:00 Plt Count 294 K/MM3 (134-434) 10/24/17 06:00 MPV 7.4 fl (7.5-11.1) L 10/24/17 06:00 Absolute Neuts (auto) 5.1 # 10/24/17 06:00 Neutrophils % 62.0 % (42.8-82.8) 10/24/17 06:00 Lymphocytes % 24.0 % (8-40) D 10/24/17 06:00 Monocytes % 8.3 % (3.8-10.2) 10/24/17 06:00 Eosinophils % 5.0 % (0-4.5) H D 10/24/17 06:00 Basophils % 0.7 % (0-2.0) 10/24/17 06:00 Nucleated RBC % 0 % (0-0) 10/24/17 06:00 Retic Count 2.48 % (0.5-1.5) H 10/21/17 17:00 Haptoglobin 104 mg/dL (34-200) 10/21/17 17:00 Assessment/Plan Status post Stable Ambulation Analgesia as needed Continue post op care
[2017-10-24] MEDS: PRENATAL VITAMINS W/ FOLIC ACID TABLET (FP) PO SCH (10:36)
[2017-10-24] MEDS: FERROUS SO4/VIT C/FA 1 EACH TABLET.ER PO SCH ×2 (10:36→21:16)
[2017-10-24] MEDS: ENOXAPARIN NA (PORCINE) 40 MG/0.4 ML DISP.SYRIN SQ SCH (11:25)
--- NOTE | 2017-10-24 11:27 | PN ---
Progress Note, Physician Chief Complaint: Post- Hypertension and severe anemia. History of Present Illness: The patient was seen for post Hypertension. She has profound anemia. But refuses transfusion. - Current Medication List Current Medications: Active Medications Acetaminophen (Tylenol -) 650 mg PO Q4H PRN PRN Reason: PAIN LEVEL 1-5 Last Admin: 10/24/17 08:45 Dose: 650 mg Acetaminophen (Tylenol -) 500 mg PO Q6H PRN PRN Reason: PAIN LEVEL 4 - 6 Albuterol Sulfate (Ventolin Hfa Inhaler -) 2 puff IH Q4H PRN PRN Reason: ASTHMA Benzocaine (Americaine 20% [place] -) 1 spray TP PRN PRN PRN Reason: Pain - Topical Benzocaine (Americaine Ointment -) 1 applic PA PRN PRN PRN Reason: Pain - Topical Bisacodyl (Dulcolax Suppository -) 10 mg RC PRN PRN PRN Reason: CONSTIPATION Diphenhydramine HCl (Benadryl -) 25 mg PO Q8H PRN PRN Reason: FOR ITCHING Enoxaparin Sodium (Lovenox -) 40 mg SQ DAILY [facility] Last Admin: 10/23/17 09:18 Dose: 40 mg Folic Acid/Iron (Folitab 500 Caplet -) 1 each PO BID [facility] Last Admin: 10/24/17 10:36 Dose: 1 each Oxytocin/Sodium Chloride (Normal Saline+30 Units Oxytocin) 30 unit in 500 mls @ 1 mls/hr IVPB ASDIR [facility] Last Infusion: 10/21/17 10:00 Dose: 7 mls/hr Oxytocin/Sodium Chloride (Normal Saline+20 Units Oxytocin -) 20 unit in 1,000 mls @ 100 mls/hr IV ASDIR [facility] Last Admin: 10/24/17 09:25 Dose: Not Given Ibuprofen (Caldolor Injection -) 800 mg IVPB Q6H PRN PRN Reason: PAIN 6-10 if PO not effective. Last Admin: 10/21/17 18:45 Dose: 800 mg Ibuprofen (Motrin -) 600 mg PO Q4H PRN PRN Reason: PAIN LEVEL 1-5 Labetalol HCl (Normodyne -) 200 mg PO TID [facility] Naloxone HCl (Narcan -) 0.4 mg IVPUSH PRN PRN PRN Reason: Sedation Ondansetron HCl (Zofran Injection) 4 mg IVPUSH Q4H PRN PRN Reason: NAUSEA Oxycodone HCl (Roxicodone -) 5 mg PO Q4H PRN PRN Reason: PAIN LEVEL 4 - 6 Oxycodone HCl (Roxicodone -) 10 mg PO Q4H PRN PRN Reason: PAIN LEVEL 7 - 10 Last Admin: 10/24/17 08:45 Dose: 10 mg Multivit/Folic Acid/Iron ( Vitamins (Sjr) -) 1 tab PO DAILY [facility] Last Admin: 10/24/17 10:36 Dose: 1 tab Senna/Docusate Sodium (Pericolace -) 2 tablet PO HS PRN PRN Reason: CONSTIPATION Simethicone (Mylicon -) 80 mg PO Q4H PRN PRN Reason: GAS Last Admin: 10/23/17 22:00 Dose: 80 mg Witch Alicia/Glycerin (Tucks Pads -) 1 pad TP PRN PRN PRN Reason: Pain - Topical - Objective Vital Signs: Vital Signs Temperature 97.9 F 10/24/17 08:40 Pulse Rate 84 10/24/17 08:40 Respiratory Rate 18 10/24/17 08:40 Blood Pressure 141/92 10/24/17 08:40 O2 Sat by Pulse Oximetry (%) 100 10/21/17 17:40 Labs: CBC, BMP 10/24/17 06:00 10/20/17 09:00 INR, PTT INR 0.91 (0.82-1.09) 10/20/17 09:00 Problem List - Problems (1) hypertension Code(s): O16.5 - UNSPECIFIED MATERNAL HYPERTENSION, COMP THE PUERPERIUM (2) Anemia, Code(s): O90.81 - ANEMIA OF THE PUERPERIUM (3) Anemia Code(s): D64.9 - ANEMIA, UNSPECIFIED Qualifiers: Anemia type: iron deficiency Assessment/Plan 22 y/o female with Hypertension after C Section. The mother and the baby doing well. The patient is planning on nursing the baby. BP is trending towards acceptable range. On Labetalol. Monitor the BP closely. Profound and severe anemia. The patient declines blood transfusions. Will continue the Labetalol. Thank you. Will follow with you.
[2017-10-24] MEDS ORDERED: oxyCODONE HCL 5 MG TABLET PO PRN ×2 (16:47)
[2017-10-25] MEDS: ACETAMINOPHEN 325 MG TABLET (FP) PO PRN (00:27)
[2017-10-25] MEDS: SIMETHICONE 80 MG TAB.CHEW (FP) PO PRN ×2 (00:27→09:37)
[2017-10-25] MEDS: LABETALOL HCL 200 MG TABLET (FP) PO SCH (06:15)
--- NOTE | 2017-10-25 06:59 | DS ---
Physical Exam-[employer] Vital Signs: Vital Signs Temperature 98.0 F 10/25/17 04:30 Pulse Rate 72 10/25/17 04:30 Respiratory Rate 20 10/25/17 04:30 Blood Pressure 129/82 10/25/17 04:30 O2 Sat by Pulse Oximetry (%) 100 10/21/17 17:40 Constitutional: Yes: Well Nourished, No Distress, Calm Eyes: Yes: WNL, Conjunctiva Clear, EOM Intact HENT: Yes: WNL, Atraumatic, Normocephalic Neck: Yes: WNL, Supple, Trachea Midline Cardiovascular: Yes: WNL, Regular Rate and Rhythm Respiratory: Yes: WNL, Regular, CTA Bilaterally Gastrointestinal: Yes: WNL ...Rectal Exam: Yes: WNL Renal/: Yes: WNL ....Post : Yes: Uterus firm, Uterus non-tender, Slight lochia rubra Breast(s): Yes: WNL Musculoskeletal: Yes: WNL Extremities: Yes: WNL Edema: Yes Edema: LLE: Trace, RLE: Trace Integumentary: Yes: WNL Neurological: Yes: WNL, Alert, Oriented ...Motor Strength: WNL Psychiatric: Yes: WNL, Alert, Oriented Labs: CBC, BMP 10/24/17 06:00 10/20/17 09:00 Delivery - Delivery Section: Primary (no complication), Low Flap Transverse (no complication) Type of Anesthesia: Epidural Episiotomy/Laceration: None EBL (cc): 500 Delivery, Single - Stages of Labor Date 1st Stage Initiatied: 10/20/17 Time 1st Stage Initiated: 05:10 Date of Delivery: 10/21/17 Time of Delivery: 16:14 Time Placenta Delivered: 16:15 Placenta: Yes: Expressed - 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 Present: Yes Name: Kelvin Jesus Infant Gender: Female Weight: 10 lb 4 oz Position: OP Total Hours ROM (Hrs/Mins): 35hrs 5min - 1 Minute Total Score: 9 5 Minutes Total Score: 9 - Feeding Plan Initial Plan: Exclusive throughout hospitalization Discharge Summary Reason For Visit: LABOR Current Active Problems Anemia (Acute) Anemia, (Acute) delivery delivered (Acute) membrane rupture (Acute) History of inadequate care (Acute) Knowledge deficit (Acute) Post term over 40 weeks (Acute) hypertension (Acute) Status post section routine follow-up (Acute) Procedures: Principal: primary LST c/s Hospital Course: HTN, anemia, had 4 u PRBC Condition: Good - Instructions Diet, Activity, Other Instructions: regular diet, follow up [facility] care 1 week, if fever, pain, heavy vaginal bleeding call MD Referrals: Shelton Elena MD [Staff Physician] - Disposition: HOME - Home Medications Comprehensive Discharge Medication List: Ambulatory Orders Albuterol Sulfate Inhaler - [Ventolin Hfa Inhaler -] 2 inh PO PRN PRN 09/09/17 Ferrous Sulfate 325 mg PO BID #90 tablet 10/24/17 Ibuprofen [Motrin -] 600 mg PO QID #28 tablet 10/24/17 Vitamins (Sjr) - 1 tab PO DAILY #90 tablet 10/24/17
[2017-10-25 07:40] LABS: BASO % 0.8 % (0-2.0); EOS % 5.1 % (0-4.5); HEMOGLOBIN 8.9 GM/dL (10.7-15.3); LYMPH % 24.3 % (8-40); MCH 26.5 pg (25.7-33.7); MCHC 34.2 g/dl (32.0-36.0); MEAN CELL VOLUME 77.7 fl (80-96); MEAN PLT VOLUME 7.1 fl (7.5-11.1); MONO % 7.4 % (3.8-10.2); NEUT % 62.4 % (42.8-82.8); PLATELET COUNT 361 K/MM3 (134-434); RBC 3.35 M/mm3 (3.60-5.2); RDW 17.9 % (11.6-15.6); WHITE BLOOD COUNT 8.4 K/mm3 (4.0-10.0)
[2017-10-25] MEDS: ENOXAPARIN NA (PORCINE) 40 MG/0.4 ML DISP.SYRIN SQ SCH (09:37)
[2017-10-25] MEDS: PRENATAL VITAMINS W/ FOLIC ACID TABLET (FP) PO SCH (09:37)
[2017-10-25] MEDS: FERROUS SO4/VIT C/FA 1 EACH TABLET.ER PO SCH (09:37)
--- NOTE | 2017-10-25 10:16 | PN ---
Progress Note, Physician Chief Complaint: The patient seen in her jey. Reports feeling well. Post- Hypertension and severe anemia. History of Present Illness: The patient was seen for post Hypertension. 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 BP fluctuates. She had refused the last dose of Labetalol. - Current Medication List Current Medications: Active Medications Acetaminophen (Tylenol -) 650 mg PO Q4H PRN PRN Reason: PAIN LEVEL 1-3 Last Admin: 10/25/17 00:27 Dose: 650 mg Acetaminophen (Tylenol -) 500 mg PO Q6H PRN PRN Reason: PAIN LEVEL 4 - 6 Last Admin: 10/25/17 09:37 Dose: 500 mg Albuterol Sulfate (Ventolin Hfa Inhaler -) 2 puff IH Q4H PRN PRN Reason: ASTHMA Benzocaine (Americaine 20% [place] -) 1 spray TP PRN PRN PRN Reason: Pain - Topical Benzocaine (Americaine Ointment -) 1 applic OR PRN PRN PRN Reason: Pain - Topical Bisacodyl (Dulcolax Suppository -) 10 mg RC PRN PRN PRN Reason: CONSTIPATION Diphenhydramine HCl (Benadryl -) 25 mg PO Q8H PRN PRN Reason: FOR ITCHING Enoxaparin Sodium (Lovenox -) 40 mg SQ DAILY [facility] Last Admin: 10/25/17 09:37 Dose: 40 mg Folic Acid/Iron (Folitab 500 Caplet -) 1 each PO BID [facility] Last Admin: 10/25/17 09:37 Dose: 1 each Oxytocin/Sodium Chloride (Normal Saline+30 Units Oxytocin) 30 unit in 500 mls @ 1 mls/hr IVPB ASDIR [facility] Last Infusion: 10/21/17 10:00 Dose: 7 mls/hr Oxytocin/Sodium Chloride (Normal Saline+20 Units Oxytocin -) 20 unit in 1,000 mls @ 100 mls/hr IV ASDIR [facility] Last Admin: 10/24/17 09:25 Dose: Not Given Ibuprofen (Caldolor Injection -) 800 mg IVPB Q6H PRN PRN Reason: PAIN 6-10 if PO not effective. Last Admin: 10/21/17 18:45 Dose: 800 mg Ibuprofen (Motrin -) 600 mg PO Q4H PRN PRN Reason: PAIN LEVEL 1-5 Labetalol HCl (Normodyne -) 200 mg PO TID [facility] Last Admin: 10/25/17 06:15 Dose: Not Given Naloxone HCl (Narcan -) 0.4 mg IVPUSH PRN PRN PRN Reason: Sedation Ondansetron HCl (Zofran Injection) 4 mg IVPUSH Q4H PRN PRN Reason: NAUSEA Oxycodone HCl (Roxicodone -) 5 mg PO Q4H PRN PRN Reason: PAIN LEVEL 4 - 6 Last Admin: 10/25/17 09:38 Dose: 5 mg Oxycodone HCl (Roxicodone -) 10 mg PO Q4H PRN PRN Reason: PAIN LEVEL 7 - 10 Last Admin: 10/25/17 00:27 Dose: 10 mg Multivit/Folic Acid/Iron ( Vitamins (Sjr) -) 1 tab PO DAILY [facility] Last Admin: 10/25/17 09:37 Dose: 1 tab Senna/Docusate Sodium (Pericolace -) 2 tablet PO HS PRN PRN Reason: CONSTIPATION Simethicone (Mylicon -) 80 mg PO Q4H PRN PRN Reason: GAS Last Admin: 10/25/17 09:37 Dose: 80 mg Witch Alicia/Glycerin (Tucks Pads -) 1 pad TP PRN PRN PRN Reason: Pain - Topical - Objective Vital Signs: Vital Signs Temperature 98.0 F 10/25/17 04:30 Pulse Rate 72 10/25/17 04:30 Respiratory Rate 20 10/25/17 04:30 Blood Pressure 129/82 10/25/17 04:30 O2 Sat by Pulse Oximetry (%) 100 10/21/17 17:40 Constitutional: Yes: No Distress, Anxious, Pallor Eyes: Yes: Conjunctiva Clear HENT: Yes: Normocephalic Neck: Yes: Trachea Midline Cardiovascular: Yes: Regular Rate and Rhythm, S1, S2 Respiratory: Yes: CTA Bilaterally Gastrointestinal: Yes: Normal Bowel Sounds, Soft Genitourinary: No: Bladder Distention, CVA Tenderness - Left, CVA Tenderness - Right Labs: CBC, BMP 10/25/17 06:55 10/20/17 09:00 INR, PTT INR 0.91 (0.82-1.09) 10/20/17 09:00 Problem List - Problems (1) hypertension Code(s): O16.5 - UNSPECIFIED MATERNAL HYPERTENSION, COMP THE PUERPERIUM (2) Anemia, Code(s): O90.81 - ANEMIA OF THE PUERPERIUM (3) Anemia Code(s): D64.9 - ANEMIA, UNSPECIFIED Qualifiers: Anemia type: iron deficiency Assessment/Plan 22 y/o female with Hypertension after C Section. The mother and the baby doing well. The patient is planning on nursing the baby. BP is trending towards acceptable range. On Labetalol. Monitor the BP closely. Profound and severe anemia. s/p PRBC transfusion. Patient fro d/c today. Will reduce Labetalol to 200 mg BID. I will see her in the office in 1 week. Thank you. Will follow with you.
[2017-10-25 14:18] VITALS: BP 144/82; PULSE 80; TEMP 97.8
[2017-10-25] MEDS ORDERED: LABETALOL HCL 200 MG TABLET (FP) PO SCH (22:00)
== END 2017-10-25 12:25 | disposition home or self-care (01) | DRG 540 ==
LOC: JDEL 04:40 → JLDR 08:30 → J3W 10-21 20:40
PROVIDERS: ADMIT Obstetrics & Gynecology; ATTEND Obstetrics & Gynecology
PROC: 10D00Z1 Extraction of Products of Conception, Low, Open Approach (ICD-10-PCS; principal; 2017-10-21)
PROC: 30233N1 Transfusion of Nonautologous Red Blood Cells into Peripheral Vein, Percutaneous Approach (ICD-10-PCS; 2017-10-22)
DX: O48.0 Post-term pregnancy (principal); O66.2 Obstructed labor due to unusually large fetus; O16.5 Unspecified maternal hypertension, complicating the puerperium; O62.0 Primary inadequate contractions; O36.63X0 Maternal care for excessive fetal growth, third trimester, not applicable or unspecified; O99.824 Streptococcus B carrier state complicating childbirth; O99.013 Anemia complicating pregnancy, third trimester; D50.9 Iron deficiency anemia, unspecified; Z3A.40 40 weeks gestation of pregnancy; Z37.0 Single live birth; O99.02 Anemia complicating childbirth; Z53.29 Procedure and treatment not carried out because of patient's decision for other reasons
CPT/HCPCS: 36415; 36430; 36600; 80048; 81003; 81015; 82803; 82977; 83010; 84450; 84460; 84550; 85025; 85032; 85044; 85461; 85610; 85730; 86593; 86850; 86870; 86900; 86901; 86902; 86922; 86999; 88307-TC; P9038; P9058

== ENCOUNTER 2018-02-23 05:05 | Emergency (ER) | payer OTHER ==
[2018-02-23 05:13] VITALS: BP 125/89; PULSE 75; TEMP 98; BMI 27.4
--- NOTE | 2018-02-23 05:37 | PDOC ---
History of Present Illness - General Chief Complaint: Toothache Stated Complaint: TOOTH ACHE Time Seen by Provider: 02/23/18 05:27 - History of Present Illness Initial Comments: 02/23/18 05:55 22-year-old female presents to the emergency department complaining of right lower toothache. Patient initially points to the right lower second molar toothache but upon percussion, patient states it's her right lower third molar which is causing her pain. On thorough examination, patient kept changing her location of where she is having her toothache. Patient states she started having this toothache at approximately 0100 hrs. this morning. Patient states it caused her to scream and wake up her young infant child. Patient took ibuprofen/600 mg which subsided the pain. Patient denies fever, chills, nausea/ vomiting, facial pain, earache, sore throat, difficulty swallowing. Patient states she came to the emergency department for OxyContin because she just relocated to [place]. Patient comes into the emergency department and insists on "Oxys" when I walked into her room. Patient states she awoke at 0100 hrs. this morning screaming in pain and waking up her young child. Patient states the pain has subsided with ibuprofen. Patient states she came to the emergency department for the prescription area I informed the patient upon examination that there are no signs of infection, swelling, drainage, decay I informed the patient the pain was inconsistent on percussion. Patient kept changing her mind on with the pain was located. I informed the patient that she can take ibuprofen every 4-6 hours alternating with Tylenol I informed the patient to follow up with the dental clinic or the dentist listed on his discharge/urgent care dental I informed the patient that there are clinics that'll open for dental surface. Patient stated to me that there are no dental facility that'll open on weekends I informed the patient that I will give her information regarding a dental facility that is open every day. This information with the dental service will be listed on her discharge paper. Patient was given tramadol 50 mg 1 tablet 3 times a day when necessary. Patient insisted on a heavy narcotic. Patient informed me that she recently relocated to [place] and resides with her infant daughter and has no adults support. I informed the patient that because she's never taking any narcotics before and she has no adults support. I will be afraid that anything stronger than Tylenol or Percocet could make her drowsy and therefore we'll be unable to care for her child. Patient states it is not my concern. Patient then states she does not know why EMS had brought her to discuss facility. I asked the patient which hospital does she lives closest to. Patient states she lives closest to [facility]. Patient states she plans to leave and go to her friend's house which is down the block from [facility]. I informed the patient that she is at [facility]. Patient states she meant [facility]. When I accidentally slipped and said she is at [facility], patient states"stupid, I want to be at [facility] away from [facility]. I informed the patient that she is at [facility]. Patient insists on seeing the nursing assistant of the hospital so he can prescribe her OxyContin. Patient was ultimately discharged with tramadol 50 mg 1 tab by mouth 3 times a day when necessary. Patient was given information on dental clinic which is open this weekend. [id number] Past History - Past Medical History Allergies/Adverse Reactions: Allergies Allergy/AdvReac Type Severity Reaction Status Date / Time shellfish derived Allergy Intermediate Hives Verified 02/23/18 05:09 No Known Drug Allergies Allergy Verified 02/23/18 05:09 Home Medications: Ambulatory Orders Albuterol Sulfate Inhaler - [Ventolin Hfa Inhaler -] 2 inh PO PRN PRN 09/09/17 Ferrous Sulfate 325 mg PO BID #90 tablet 10/24/17 Ibuprofen [Motrin -] 600 mg PO QID #28 tablet 10/24/17 Vitamins (Sjr) - 1 tab PO DAILY #90 tablet 10/24/17 Tramadol HCl 50 mg PO TID #10 tablet MDD 3 02/23/18 Asthma: Yes Cancer: No Cardiac Disorders: No COPD: No Diabetes: No HTN: Yes Seizures: No Thyroid Disease: No - Suicide/Smoking/Psychosocial Hx Smoking History: Never smoked Have you smoked in the past 12 months: No Information on smoking cessation initiated: No Hx Alcohol Use: No Drug/Substance Use Hx: No Substance Use Type: None Hx Substance Use Treatment: No Review of Systems - Review of Systems Able to Perform ROS?: Yes Comments:: 02/23/18 06:11 CONSTITUTIONAL: Absent: fever, chills, diaphoresis, generalized weakness, malaise, loss of appetite HEENT: Absent: rhinorrhea, nasal congestion, throat pain, throat swelling, difficulty swallowing, mouth swelling, ear pain, eye pain, visual Changes SKIN: Absent: rash, itching, pallor HEMATOLOGIC/IMMUNOLOGIC: Absent: easy bleeding, easy bruising, lymphadenopathy, frequent infections ENDOCRINE: Absent: unexplained weight gain, unexplained weight loss, heat intolerance, cold intolerance GENERAL: Well developed, well nourished. Awake and alert. No acute distress. HEENT: Normocephalic, atraumatic. PERRLA, EOMI. No conjunctival pallor. Sclera are non- icteric. Moist mucous membranes. Oropharynx is clear. NECK: Supple. Full ROM. No JVD. Carotid pulses 2+ and symmetric, without bruits. No thyromegaly. No lymphadenopathy. SKIN: Warm and dry. Normal capillary refill. No rashes. No jaundice. Percussion with tongue depressor to right and upper molars/canine but pt kept changing her location of pain. Neg swelling/drainage/redness to gums Tongue;red/non swelling, neg pain on palp Jaw: neg pain/swelling Is the patient limited [place] proficient: No *Physical Exam - Vital Signs Last Vital Signs Temp Pulse Resp BP Pulse Ox 98.0 F 75 18 125/89 100 02/23/18 05:10 02/23/18 05:10 02/23/18 05:10 02/23/18 05:10 02/23/18 05:10 *DC/Admit/Observation/Transfer Diagnosis at time of Disposition: Toothache - Discharge Dispostion Disposition: HOME Condition at time of disposition: Stable Decision to Admit order: No - Prescriptions Prescriptions: Tramadol HCl 50 mg PO TID #10 tablet MDD 3 - Referrals - Patient Instructions Printed Discharge Instructions: DI for Dental Pain Additional Instructions: Tramadol as needed for pain Avoid Ibuprofen when taking Tramadol Follow up with a dentist Follow up with the dentist [facility] [phone] [place]: [phone] Saturday through Saturday: 4 PM to 9 PM Saturday and Saturday 9 AM to 5 PM Return back to the ER for severe symptoms - Post Discharge Activity
== END 2018-02-23 06:22 | disposition home or self-care (01) ==
LOC: JER 05:05
DX: K08.89 Other specified disorders of teeth and supporting structures (principal); I10 Essential (primary) hypertension; Z87.09 Personal history of other diseases of the respiratory system
CPT/HCPCS: 99282-25